=== PATIENT | male | born 1960 | race Caucasian/White ===

== ENCOUNTER 2018-03-29 11:12 | Observation (INO) | payer OTHER ==
[~2018-03-29] VITALS: Ht 182.9 cm; Wt 85.3 kg
--- NOTE | ~2018-03-29 | HP ---
PATIENT: LIBORIO FOY MEDICAL RECORD: [id number] ACCOUNT: [id number] LOCATION:D.[facility] [address] : 62 ADMISSION DATE: 03/29/18 PCP: ISMA BENAVIDES MD HISTORY AND PHYSICAL EXAMINATION DATE OF ADMISSION: 03/29/2018 CHIEF COMPLAINT: Nausea and vomiting. HISTORY OF PRESENT ILLNESS: The patient is a 58-year-old gentleman, who states he was doing well until yesterday, he developed nausea and vomiting. He had nausea and vomiting all through the night. Complains of intermittent abdominal pain. The patient presented to the clinic today. He had taken Phenergan without any improvement. It is felt the patient needed inpatient hospitalization. PAST MEDICAL HISTORY: Significant that he has had vitamin D deficiency, hyperlipidemia, gout, history of anxiety, and hypertension. He has had a history of having insomnia. FAMILY HISTORY: Father of malignant prostate cancer at 79. Mother has hyperlipidemia. She also at 76. She had hypertension. MEDICATIONS: Include allopurinol 300 mg once a day, amlodipine 5 mg p.o. q.h.s., hydroxyzine 25 mg every 6 hours p.r.n. anxiety, lisinopril 10 mg once a day, Meloxicam 15 mg once a day, Restoril 15 mg p.o. q.h.s. p.r.n. insomnia, Zocor 20 mg 1 p.o. every day. ALLERGIES: SPORANOX. HABITS: None. SOCIAL HISTORY: The patient is . Educated through the 12th grade. He is self employed. REVIEW OF SYSTEMS: GENERAL: He denies any headaches, seizure or syncope. Denies change in visual or auditory acuity. PULMONARY: He denies any shortness of breath, cough or congestion, history of TB, asthma, or bronchitis. CARDIOVASCULAR: He has had no chest pain, palpitations, PND or orthopnea. GASTROINTESTINAL: As stated above, he has had no diarrhea. MUSCULOSKELETAL: Noncontributory. PHYSICAL EXAMINATION: VITAL SIGNS: Weight is 188 pounds, blood pressure 140/86, pulse 78, respirations 16, and temperature 97. HEENT: Head is normocephalic. No lesions. Ears: TMs clear. Eyes: Pupils equal, round, reactive to light. His extraocular movements are intact. Nasal cavity, oral cavity, oropharynx clear. NECK: Supple. There is no adenopathy. HEART: Has a regular rate. LUNGS: Clear. ABDOMEN: He has some diffuse subjective tenderness. RECTAL: Deferred. HISTORY AND PHYSICAL [id number] BRANCH,LIBORIO LABORAT[facility] DATA: White count is elevated at 11.7. ASSESSMENT: Gastroenteritis with abdominal pain, history of hypertension, gout, and hyperlipidemia. PLAN: The patient will be admitted for antiemetics, IV hydration. Also, we will check an amylase and lipase, also liver profile. The patient will have a CT of the abdomen as well as the pelvis. TRANSINT:[id number] Voice Confirmation ID: [id number] DOCUMENT ID: [id number] ISMA BENAVIDES MD at 0702 CC: [id number] DICTATION DATE: 03/29/18 1257 SPOOL CARRIER: 03/29/18 1306 ADM IN [facility] [address] [id number]
--- NOTE | ~2018-03-29 | MORECARE ---
CASE MANAGEMENT DISCHARGE SUMMARY PATIENT: LIBORIO FOY UNIT: [id number] ADM DATE: 03/29/18 AGE: 58 : 62 SEX: M ROOM/BED: D.2228 AUTHOR: KIT,DOC PHYSICIAN: REFERRING PHYSICIAN: ISMA BENAVIDES MD DATE OF SERVICE: 04/02/18 Discharge Plan Patient Name: LIBORIO FOY Facility: [facility]:[place] : 1960 Planned Disposition: Home Anticipated Discharge Date: 03/30/18 Discharge Date: 03/30/2018 Expected LOS: 1 Initial Reviewer: [email or web address] Initial Review Date: 03/30/2018 Generated: 04/02/18 10:27 am DCP- Discharge Planning Updated by [email or web address]: Jodi Zhu on 03/30/18 8:[address] Patient Name: LIBORIO FOY Admission Status: Elective Accout number: [id number] Admission Date: 03-29-2018 : 1960 Admission Diagnosis: Attending: ISMA BENAVIDES Current LOS: 1 Anticipated DC Date: 03-30-2018 Planned Disposition: Home Primary Insurance: [facility] [employer] Discharge Planning Comments: CM met with patient and in the room to discuss discharge planning. States he is independent with all ADL's and IADL's. States lives with his in [place]. States he does not have any DME or use any outside community resources and denies need. No needs identified. To be discharged home today. CM will continue to follow and assist with discharge planning/needs. Erp Business Analyst: Jodi Zhu DCPIA - Discharge Planning Initial Assessment Updated by [email or web address]: Jodi Zhu on 03/30/18 9:36 am * Is the patient Alert and Oriented? Yes * How many steps to enter\exit or inside your home? 0/0 * PCP Dr. Benavides * Pharmacy [facility] * Preadmission Environment Home with Family * ADLs Independent * Equipment None * List name and contact numbers for known caregivers / representatives who currently or will assist patient after discharge: Gila - mercedes - [phone] * Verbal permission to speak to the caregivers and representatives has been obtained from the patient. Yes * Community resources currently utilized None * Additional services required to return to the preadmission environment? No * Can the patient safely return to the preadmission environment? Yes * Has this patient been hospitalized within the prior 30 days at any hospital? No Last DP export: 03/30/18 8:38 Patient Name: LIBORIO FOY Page [id number] at 0927 All edits/amendments must be made on the electronic document DICTATION DATE: 04/02/18926 COMMUNITY HEALTH COUNSELOR: DOMINICK 04/02/18926 RPT#: [id number] DC DATE:03/30/18 STATUS: DIS IN [facility] [address] [place] [address] END OF REPORT
--- NOTE | ~2018-03-29 | MORECARE ---
CASE MANAGEMENT DISCHARGE SUMMARY PATIENT: LIBORIO FOY UNIT: [id number] ADM DATE: 03/29/18 AGE: 58 : 62 SEX: M ROOM/BED: D.2228 AUTHOR: KIT,DOC PHYSICIAN: REFERRING PHYSICIAN: ISMA BENAVIDES MD DATE OF SERVICE: 03/30/18 Discharge Plan Patient Name: LIBORIO FOY Facility: [facility]:[place] : 1960 Planned Disposition: Home Anticipated Discharge Date: 03/30/18 Discharge Date: Expected LOS: 1 Initial Reviewer: [email or web address] Initial Review Date: 03/30/2018 Generated: 03/30/18 10:38 am Comments DCP- Discharge Planning Updated by [email or web address]: Jodi Zhu on 03/30/18 8:[address] Patient Name: LIBORIO FOY Admission Status: Elective Accout number: [id number] Admission Date: 03-29-2018 : 1960 Admission Diagnosis: Attending: ISMA BENAVIDES Current LOS: 1 Anticipated DC Date: 03-30-2018 Planned Disposition: Home Primary Insurance: [facility] [employer] Discharge Planning Comments: CM met with patient and in the room to discuss discharge planning. States he is independent with all ADL's and IADL's. States lives with his in [place]. States he does not have any DME or use any outside community resources and denies need. No needs identified. To be discharged home today. CM will continue to follow and assist with discharge planning/needs. Grounds Manager: Jodi Zhu DCPIA - Discharge Planning Initial Assessment Updated by [email or web address]: Jodi Zhu on 03/30/18 9:36 am * Is the patient Alert and Oriented? Yes * How many steps to enter\exit or inside your home? 0/0 * PCP Dr. Benavides * Pharmacy [facility] * Preadmission Environment Home with Family * ADLs Independent * Equipment None * List name and contact numbers for known caregivers / representatives who currently or will assist patient after discharge: Gial long - [phone] * Verbal permission to speak to the caregivers and representatives has been obtained from the patient. Yes * Community resources currently utilized None * Additional services required to return to the preadmission environment? No * Can the patient safely return to the preadmission environment? Yes * Has this patient been hospitalized within the prior 30 days at any hospital? No Patient Name: LIBORIO FOY Page [phone] at 0938 All edits/amendments must be made on the electronic document DICTATION DATE: 03/30/18937 ENERGY SALES CONSULTANT: DOMINICK 03/30/18937 RPT#: [id number] DC DATE: STATUS: ADM IN [facility] [address] [place] [address] END OF REPORT
[2018-03-29] MEDS ORDERED: ZOCOR20 MG PO (11:40)
[2018-03-29] MEDS ORDERED: PRINIVIL10 MG PO (11:40)
[2018-03-29] MEDS ORDERED: NORVASC5 MG PO (11:40)
[2018-03-29] MEDS ORDERED: ZYLOPRIM300 MG PO (11:41)
[2018-03-29 12:11] VITALS: BP 151/81
[2018-03-29 12:40] LABS: BASOPHILS 0.1 % (0-2); EOSINOPHILS 0 % (0-7); HEMATOCRIT 44.3 % (42.0-54.0); HEMOGLOBIN 16.1 g/dL (13.5-17.5); IMMATURE GRANULOCYTES 0.2 % (0-5); LYMPHOCYTES 11.3 % (15-50); MCH 33.8 pg (26.0-34.0); MCHC 36.3 g/dL (31.0-37.0); MCV 92.9 fL (80.0-100.0); MEAN PLATELET VOLUME 9.9 fL (7.4-10.4); NEUTROPHILS 84.4 % (40-80); PLATELET COUNT 235 10x3/uL (130-400); RBC 4.77 10x6/uL (4.20-6.10); RDW 13.1 % (11.5-14.5); WBC 11.6 10x3/uL (4.8-10.8)
[2018-03-29 13:05] LABS: ALBUMIN 3.8 g/dL (3.4-5.0); ANION GAP 17.6 mmol/L (8-16); BILIRUBIN - TOTAL 0.56 mg/dL (0.2-1.3); CALCIUM 9.4 mg/dL (8.5-10.1); CARBON DIOXIDE 24.4 mmol/L (21.0-32.0); CREATININE - SERUM 1.1 mg/dL (0.6-1.3); PROTEIN - SERUM 6.9 g/dL (6.4-8.2)
[2018-03-29 17:01] VITALS: BP 154/76
[2018-03-29 20:00] VITALS: BP 131/75
[2018-03-30 04:44] LABS: BASOPHILS 0.1 % (0-2); EOSINOPHILS 0.2 % (0-7); HEMATOCRIT 40.5 % (42.0-54.0); HEMOGLOBIN 14.7 g/dL (13.5-17.5); IMMATURE GRANULOCYTES 0.1 % (0-5); LYMPHOCYTES 18.4 % (15-50); MCH 33.9 pg (26.0-34.0); MCHC 36.3 g/dL (31.0-37.0); MCV 93.5 fL (80.0-100.0); MEAN PLATELET VOLUME 10.1 fL (7.4-10.4); MONOCYTES 7.7 % (2-11); NEUTROPHILS 73.5 % (40-80); PLATELET COUNT 255 10x3/uL (130-400); RBC 4.33 10x6/uL (4.20-6.10); RDW 13.2 % (11.5-14.5); WBC 10.2 10x3/uL (4.8-10.8)
[2018-03-30 05:10] LABS: ANION GAP 13.1 mmol/L (8-16); CALCIUM 8.5 mg/dL (8.5-10.1); CARBON DIOXIDE 26.4 mmol/L (21.0-32.0); CREATININE - SERUM 1.1 mg/dL (0.6-1.3); POTASSIUM - SERUM 3.5 mmol/L (3.5-5.1)
[2018-03-30 06:25] VITALS: BP 117/67
[2018-03-30] MEDS ORDERED: ZOFRAN4 MG PO (06:59)
[2018-03-30] MEDS ORDERED: CIPRO500 MG PO (07:00)
[2018-03-30] MEDS ORDERED: FLAGYL500 MG PO (07:00)
[2018-03-30] MEDS ORDERED: PROTONIX40 MG PO (07:01)
[2018-03-30 08:18] VITALS: BP 132/76
== END 2018-03-30 10:42 | disposition home or self-care (01) ==
LOC: D.SDCHOLD 11:12 → D.MS 11:17 → D.SDCHOLD 11:17 → OBSVTIME 11:17 → D.MS 11:17 → EDSTATUS 17:21 → D.MS 03-30 10:42
PROVIDERS: Family Medicine
DX: K52.9 Noninfective gastroenteritis and colitis, unspecified (principal); I10 Essential (primary) hypertension; E78.5 Hyperlipidemia, unspecified; M10.9 Gout, unspecified